=== PATIENT | female | born 1990 | race Caucasian/White ===

== ENCOUNTER 2023-01-03 18:26 | Emergency (ER) | payer BC ==
[~2023-01-03] VITALS: Ht 160 cm; Wt 93.0 kg
[2023-01-03] MEDS ORDERED: ONDANSETRON HCL 4 MG ORAL DISINTEGRATING TAB PO ONE (19:15)
[2023-01-03] MEDS ORDERED: ONDANSETRON ODT4 MG PO (19:59)
[2023-01-03 20:13] VITALS: BP 137/78; PULSE 70; RESP 16; O2SAT 100
== END 2023-01-03 20:14 | disposition home or self-care (01) ==
LOC: ER 18:37
DX: S06.0X0A Concussion without loss of consciousness, initial encounter (principal); R51.9 Headache, unspecified; R11.0 Nausea; W22.8XXA Striking against or struck by other objects, initial encounter; Y93.I9 Activity, other involving external motion; Y92.89 Other specified places as the place of occurrence of the external cause
CPT/HCPCS: 70450; 99283; Q0162

== ENCOUNTER 2025-04-17 21:16 | Emergency (ER) | payer BC, OTHER ==
[~2025-04-17] VITALS: Ht 160 cm; Wt 97.5 kg
[~2025-04-17 21:16] MED LIST: ONDANSETRON ODT4 MG PO
[2025-04-17] MEDS ORDERED: KETOROLAC TROMETHAMINE 60 MG/2 ML VIAL ONE (22:03)
[2025-04-17] MEDS: KETOROLAC TROMETHAMINE 60 MG/2 ML VIAL IM STA (22:08)
[2025-04-17 23:48] VITALS: PULSE 88; RESP 16; TEMP 98.7; O2SAT 100
[2025-04-17] MEDS ORDERED: KETOROLAC TROME10 MG PO (23:49)
[2025-04-17] MEDS ORDERED: ULTRAM 50MG50 MG PO (23:49)
== END 2025-04-17 23:45 | disposition home or self-care (01) ==
LOC: ER 22:05
DX: S63.591A Other specified sprain of right wrist, initial encounter (principal); M25.521 Pain in right elbow; W18.39XA Other fall on same level, initial encounter; Y93.01 Activity, walking, marching and hiking; Y92.89 Other specified places as the place of occurrence of the external cause
CPT/HCPCS: 73090; 73130; 99283; J1885